=== PATIENT | male | born 1995 | race African-American/Black ===

== ENCOUNTER 2018-11-12 04:36 | Emergency (ER) | payer SELFPAY ==
[~2018-11-12] VITALS: Ht 188 cm; Wt 73.6 kg
[2018-11-12 04:43] VITALS: BP 119/72
== END 2018-11-12 06:21 | disposition left against medical advice (07) ==
LOC: ER 05:45
DX: R07.89 Other chest pain (principal); Z53.21 Procedure and treatment not carried out due to patient leaving prior to being seen by health care provider